=== PATIENT | male | born 1990 | race African-American/Black ===

== ENCOUNTER 2016-12-17 07:28 | Emergency (ER) | payer SELFPAY ==
[2016-12-17 07:34] VITALS: BP 144/77
--- NOTE | 2016-12-17 08:11 | ER Document Report ---
HPI - HPI Patient complains to provider of: boadyaches, fever, nausea Onset: Other - tue or wed Onset/Duration: Gradual Pain Level: 4 Context: 26 yo smoker male with fever, bodyaches, nausea, runny nose, cough since or wed. Feels a little better but body still hurts. Fever. 102 this morning, took nyquil and it went down. No flu shot. Associated Symptoms: None Exacerbated by: Denies Relieved by: Denies Similar symptoms previously: No Recently seen / treated by doctor: No - ROS ROS below otherwise negative: Yes Systems Reviewed and Negative: Yes All other systems reviewed and negative - DERM Skin Color: Normal Past Medical History - General Information source: Patient - Social History Smoking Status: Current Every Day Smoker Chew tobacco use (# tins/day): No Frequency of alcohol use: None Drug Abuse: None Lives with: Spouse/Significant other Family History: Reviewed & Not Pertinent Patient has suicidal ideation: No Patient has homicidal ideation: No - Medical History Medical History: Negative Renal/ Medical History: Denies: Hx Peritoneal Dialysis Surgical Hx: Negative - Immunizations Immunizations up to date: Yes Hx Diphtheria, Pertussis, Tetanus Vaccination: Yes Vertical Provider Document - CONSTITUTIONAL Agree With Documented VS: Yes Exam Limitations: No Limitations General Appearance: No Apparent Distress - INFECTION CONTROL TRAVEL OUTSIDE OF THE [place] IN LAST 30 DAYS: No - HEENT HEENT: Normal ENT Exam, Normocephalic. negative: Pharyngeal Erythema, Tympanic Membrane Red - NECK Neck: Supple. negative: Lymphadenopathy-Left, Lymphadenopathy-Right - RESPIRATORY Respiratory: Breath Sounds Normal, No Respiratory Distress O2 Sat by Pulse Oximetry: 100 - CARDIOVASCULAR Cardiovascular: Regular Rate, Regular Rhythm - GI/ABDOMEN Gastrointestinal: Abdomen Soft, Abdomen Non-Tender, No Organomegaly - MUSCULOSKELETAL/EXTREMETIES Musculoskeletal/Extremeties: YE ALMANZAR - NEURO Level of Consciousness: Awake, Alert - DERM Integumentary: Warm, Dry, No Rash Course - Vital Signs Vital signs: Temp Pulse Resp BP Pulse Ox 98.1 F 63 16 144/77 H 100 12/17/16 07:32 12/17/16 07:32 12/17/16 07:32 12/17/16 07:32 12/17/16 07:32 Discharge - Discharge Clinical Impression: fever Upper respiratory infection Qualifiers: URI type: unspecified viral URI Qualified Code(s): J06.9 - Acute upper respiratory infection, unspecified Condition: Good Disposition: HOME, SELF-CARE Instructions: Acetaminophen, Fever ([facility]), Upper Respiratory Illness ([facility]), Anti -Inflammatory Medication ([facility]), Stop Smoking ([facility]) Additional Instructions: Sleep Fluids stop smoking Return to the emergency room if worse Prescriptions: Ibuprofen [Motrin 800 mg Tablet] 800 mg PO Q8HP PRN #30 tablet PRN Reason:
== END 2016-12-17 08:28 | disposition home or self-care (01) ==
LOC: ER 07:28
DX: J06.9 Acute upper respiratory infection, unspecified (principal); B97.89 Other viral agents as the cause of diseases classified elsewhere; R50.9 Fever, unspecified; R11.0 Nausea; R05 Cough; R09.89 Other specified symptoms and signs involving the circulatory and respiratory systems; R52 Pain, unspecified; F17.200 Nicotine dependence, unspecified, uncomplicated
CPT/HCPCS: 99283

== ENCOUNTER 2017-11-06 10:25 | Emergency (ER) | payer OTHER ==
[2017-11-06 10:45] VITALS: BP 151/91
[2017-11-06] MEDS ORDERED: IBUPROFEN 800 MG TABLET PO ONE (10:52)
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
[2017-11-06] MEDS ORDERED: HYDROCODONE/ACETAMINOPHEN 5-325 MG (6 TAB/ER DISP) ONE (13:02)
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
== END 2017-11-06 13:10 | disposition home or self-care (01) ==
LOC: ER 10:25
DX: M25.561 Pain in right knee (principal); M54.5 Low back pain; V43.52XA Car driver injured in collision with other type car in traffic accident, initial encounter; Y92.410 Unspecified street and highway as the place of occurrence of the external cause
CPT/HCPCS: 72110; 99283

== ENCOUNTER 2017-12-19 09:29 | Emergency (ER) | payer OTHER ==
[2017-12-19 09:52] VITALS: BP 123/76
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
== END 2017-12-19 13:09 | disposition home or self-care (01) ==
LOC: ER 09:29
DX: S80.01XA Contusion of right knee, initial encounter (principal); M62.830 Muscle spasm of back; M54.5 Low back pain; M54.9 Dorsalgia, unspecified; M25.571 Pain in right ankle and joints of right foot; M25.511 Pain in right shoulder; F17.200 Nicotine dependence, unspecified, uncomplicated; V87.7XXA Person injured in collision between other specified motor vehicles (traffic), initial encounter
CPT/HCPCS: 72110; 99283